=== PATIENT | female | born 1995 | race Caucasian/White ===

== ENCOUNTER 2018-03-31 01:18 | Emergency (ER) | payer OTHER ==
[2018-03-31] MEDS ORDERED: LACTATED RINGERS 1,000 ML IVS ONE (01:25)
[2018-03-31] MEDS ORDERED: LACTATED RINGERS 1,000 ML ONE (01:31)
--- NOTE | 2018-03-31 01:52 | ED.PDOC ---
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 Patient states the pain is lower abdomen constant although worsening sharp pains happen intermittently for the past hour. Patient was walking around at [facility] and afterwards on arrival home began experiencing the discomfort and pain. She's had some blood-tinged discharged today with the pain. She denies dysuria but states she does often have urinary tract infections and does feel a lot of pressure. She has positive movement and no loss of fluid. Patient's last sexual activity was approximately 24 hours ago. Patient had no difficulties with this with the exception of urinary tract infections. She still deliver her first child at 37 weeks secondary to preeclampsia. Patient has PMH of RA, PTSD, Fibromyalgia, and Anxiety disorder. Timing/Duration: just prior to arrival Quality: severe, stabbing Onset Location: suprapubic Radiation: none Activites at Onset: physical activity Prior abdominal problems: none Improving Factors: nothing Worsening Factors: nothing Associated Symptoms: denies symptoms Allergies/Adverse Reactions: Allergies NO KNOWN ALLERGY Allergy (Verified 03/31/18 01:49) Review of Systems - Review of Systems Constitutional: States: no symptoms reported. Denies: chills, fever, malaise EENTM: States: no symptoms reported Respiratory: States: no symptoms reported Cardiology: States: no symptoms reported Gastrointestinal/Abdominal: States: no symptoms reported Genitourinary: States: see HPI Skin: States: no symptoms reported Past Medical History (General) - Patient Medical History Hx Hypertension: Yes Hx Diabetes: No Hx Gastroesophageal Reflux: Yes Hx Cancer: No Hx Hepatitis C: No Surgical History: no surgical history - Vaccination History Hx Tetanus, Diphtheria Vaccination: No Hx Influenza Vaccination: No Hx Pneumococcal Vaccination: No - Social History Hx Tobacco Use: Yes Hx Alcohol Use: No - Female History Patient is a Female of Child Bearing Age (10 -59 yrs old): Yes Hx Last Menstrual Period: 08/30/18 Patient : Yes - 30weeks Expected Date of Delivery:: 06/06/18 Hx Gestational Age: 30 - Triage Comment ED Triage Comment: gravid abd, sot on palpation SVE FT//-3. Family Medical History - Family History Mother Family History: Unknown Hx Family;Other: pt stated she was adopted Physical Exam - Physical Exam General Appearance: Anxious, Obvious distress, Ill Appearing Eyes, Ears, Nose, Throat Exam: PERRL/EOMI, normal ENT inspection, TMs normal, pharynx normal Neck: non-tender, full range of motion, supple, normal inspection Cardiovascular/Respiratory: regular rate, rhythm, no M/R/G, normal peripheral pulses, no JVD, normal breath sounds, no respiratory distress Gastrointestinal/Abdominal: normal bowel sounds, non tender, soft, no organomegaly, no pulsatile mass, abnormal bowel sounds Pelvic Exam: other - FHT 154, cervix exam (by staff) FT//-3 Back Exam: normal inspection, no CVA tenderness Extremity: normal range of motion, non-tender, normal inspection, no pedal edema Neurologic: no motor/sensory deficits, alert, oriented x 3 Progress - Progress Progress: 03/31/18 01:58 as at this facility OB is not performed we do not currently have a monitor of the ability to rule out premature labor. UA is pending but we have arranged to have her transferred to [place] to labor and delivery. Departure - Departure Clinical Impression: Premature labor Qualifiers: labor trimester: second trimester labor delivery status: without delivery Qualified Code(s): O60.02 - labor without delivery, second trimester Disposition: Transfer to Hospital Condition: Fair Departure Forms: ED Discharge - Pt. Copy, Patient Portal Self Enrollment Referrals: Colt Bach MD [Primary Care Provider] - 1-2 Weeks
[2018-03-31 02:22] VITALS: BP 111/70; TEMP 98.8; O2SAT 96
== END 2018-03-31 02:30 | disposition short-term general hospital (02) ==
LOC: ER 01:18
DX: O60.02 Preterm labor without delivery, second trimester (principal); O99.89 Other specified diseases and conditions complicating pregnancy, childbirth and the puerperium; R10.30 Lower abdominal pain, unspecified; M06.9 Rheumatoid arthritis, unspecified; M79.7 Fibromyalgia; O99.343 Other mental disorders complicating pregnancy, third trimester; F43.10 Post-traumatic stress disorder, unspecified; F41.9 Anxiety disorder, unspecified; K21.9 Gastro-esophageal reflux disease without esophagitis; O10.913 Unspecified pre-existing hypertension complicating pregnancy, third trimester; I10 Essential (primary) hypertension; Z3A.30 30 weeks gestation of pregnancy; Z87.891 Personal history of nicotine dependence
CPT/HCPCS: 81001; 87086; J7120